=== PATIENT | male | born 1965 | race Caucasian/White ===

== ENCOUNTER 2020-10-18 16:11 | Inpatient (IN) | payer OTHER, MEDICAID ==
[2020-10-18] MEDS ORDERED: Ondansetron 4 MG Tab.DIS PO PRN (16:25)
[2020-10-18] MEDS ORDERED: Hyoscyamine 0.125 MG Tab.SL SL PRN (16:25)
[2020-10-18] MEDS ORDERED: Haloperidol Lactate 2 MG/ML Oral Soln 15 ML Bottle PO PRN (16:25)
[2020-10-18] MEDS ORDERED: Prochlorperazine 10 MG Tab PO PRN (16:25)
[2020-10-18] MEDS ORDERED: Morphine Oral Concentrate 20 MG/ML 30 ML Bottle SL PRN (16:25)
[2020-10-18] MEDS ORDERED: Dexamethasone 4 MG Tab PO ONE (16:30)
[2020-10-18] MEDS: LORazepam Conc Solution 2 MG/ML 30 ML Bottle PO PRN (19:09)
[2020-10-18] MEDS: levETIRAcetam 500 MG Tab PO SCH (21:42)
[2020-10-18] MEDS: Sennosides 8.6 MG Tab PO SCH (21:43)
[2020-10-18] MEDS: Pregabalin 50 MG Cap PO SCH (21:43)
[2020-10-18] MEDS ORDERED: Morphine Oral Concentrate 20 MG/ML 30 ML Bottle SL SCH (22:00)
[2020-10-18] MEDS: LORazepam Conc Solution 2 MG/ML 30 ML Bottle PO SCH (22:05)
[2020-10-18] MEDS: Morphine 10 MG/0.5 ML Oral Syringe SL SCH (22:06)
[2020-10-19] MEDS: LORazepam Conc Solution 2 MG/ML 30 ML Bottle PO SCH ×3 (06:37→23:12)
[2020-10-19] MEDS: Pregabalin 50 MG Cap PO SCH ×3 (06:38→23:11)
[2020-10-19] MEDS: Morphine 10 MG/0.5 ML Oral Syringe SL SCH ×3 (06:39→23:12)
[2020-10-19] MEDS: Sennosides 8.6 MG Tab PO SCH ×2 (09:13→20:30)
[2020-10-19] MEDS: levETIRAcetam 500 MG Tab PO SCH ×2 (09:13→20:30)
[2020-10-19] MEDS: Dexamethasone 4 MG Tab PO SCH ×2 (09:14→13:28)
--- NOTE | 2020-10-19 10:04 | PCM.SN.2 ---
- Free Text/Narrative Note: Patient seen at bedside, family at bedside as well. Patient is resting comfortably in the bed no acute distress no chest pain no shortness of breath. Mother at bedside very emotional about patient's current prognosis. Family was provided some counseling. Patient is on appropriate hospice measures. We will continue to monitor.
[2020-10-20] MEDS: LORazepam Conc Solution 2 MG/ML 30 ML Bottle PO SCH ×3 (06:49→22:09)
[2020-10-20] MEDS: Morphine 10 MG/0.5 ML Oral Syringe SL SCH ×3 (06:51→22:13)
[2020-10-20] MEDS: Pregabalin 50 MG Cap PO SCH ×3 (06:58→22:09)
[2020-10-20] MEDS: Dexamethasone 4 MG Tab PO SCH ×2 (08:17→12:26)
[2020-10-20] MEDS: levETIRAcetam 500 MG Tab PO SCH ×2 (08:17→22:09)
[2020-10-20] MEDS: Sennosides 8.6 MG Tab PO SCH ×2 (08:17→22:09)
--- NOTE | 2020-10-20 13:42 | PCM.SN.2 ---
- Free Text/Narrative Note: seen at bedside, with mother sitting by the bed. comfortable, no acute distress, somnolent. Was awake last night. Was upset when mother had to leave for the night. Will cont to monitor. Care per hospice team
[2020-10-20] MEDS: LORazepam Conc Solution 2 MG/ML 30 ML Bottle PO PRN (19:12)
[2020-10-21] MEDS: LORazepam Conc Solution 2 MG/ML 30 ML Bottle PO SCH ×3 (06:29→22:30)
[2020-10-21] MEDS: Morphine 10 MG/0.5 ML Oral Syringe SL SCH ×3 (06:30→22:49)
[2020-10-21] MEDS: Pregabalin 50 MG Cap PO SCH ×3 (06:30→22:29)
[2020-10-21] MEDS: Dexamethasone 4 MG Tab PO SCH (09:02)
[2020-10-21] MEDS: levETIRAcetam 500 MG Tab PO SCH ×2 (09:02→22:21)
[2020-10-21] MEDS: Sennosides 8.6 MG Tab PO SCH ×2 (09:03→22:22)
[2020-10-21] MEDS: Acetaminophen 500 MG Tab PO PRN (17:29)
[2020-10-21] MEDS: Morphine 10 MG/0.5 ML Oral Syringe SL PRN (18:29)
[2020-10-22] MEDS: Morphine 10 MG/0.5 ML Oral Syringe SL SCH ×3 (05:40→22:00)
[2020-10-22] MEDS: Pregabalin 50 MG Cap PO SCH ×3 (05:40→21:58)
[2020-10-22] MEDS: LORazepam Conc Solution 2 MG/ML 30 ML Bottle PO SCH ×3 (05:41→21:59)
[2020-10-22] MEDS: Sennosides 8.6 MG Tab PO SCH ×2 (09:08→21:59)
[2020-10-22] MEDS: levETIRAcetam 500 MG Tab PO SCH ×2 (09:09→21:59)
[2020-10-22] MEDS: Acetaminophen 500 MG Tab PO PRN (09:09)
[2020-10-22] MEDS ORDERED: Bisacodyl 10 MG Supp RECTAL PRN (10:21)
[2020-10-22] MEDS: Morphine 10 MG/0.5 ML Oral Syringe SL PRN (15:31)
[2020-10-23] MEDS: Sennosides 8.6 MG Tab PO SCH (09:47)
[2020-10-23] MEDS: levETIRAcetam 500 MG Tab PO SCH (09:47)
[2020-10-23] MEDS: Pregabalin 50 MG Cap PO SCH (13:29)
[2020-10-23] MEDS: Morphine 10 MG/0.5 ML Oral Syringe SL SCH (13:29)
[2020-10-23] MEDS: LORazepam Conc Solution 2 MG/ML 30 ML Bottle PO SCH (13:31)
== END 2020-10-23 14:05 | disposition hospice, home (50) | DRG 951 ==
LOC: MW.MS 16:11
PROVIDERS: ADMIT Student in an Organized Health Care Education/Training Program; ATTEND Student in an Organized Health Care Education/Training Program
DX: Z51.5 Encounter for palliative care (principal); Z75.5 Holiday relief care; Z79.899 Other long term (current) drug therapy
CPT/HCPCS: A9270-GY; J8540